=== PATIENT | male | born 1985 | race Hispanic/Latino ===

== ENCOUNTER 2021-01-21 17:50 | Inpatient (IN) | payer SELFPAY ==
[2021-01-21 19:56] LABS: #Eosinphils 0.1 thou/uL (0.0-0.7); #Lymphocytes 1.3 thou/uL (1.20-3.40); #Monocytes 0.5 thou/uL (0.11-0.59); #Neutrophils 6.5 thou/uL (1.40-6.50); %Basophils 0.5 % (0.0-1.0); %Eosinophils 0.8 % (0.0-10.0); %Lymphocytes 15.8 % (21.0-51.0); %Monocytes 5.9 % (0.0-10.0); Hemoglobin 15.4 g/dL (14.0-18.0); Mean Corpuscular HGB CONC 34.3 g/dL (32.0-36.0); Mean Corpuscular Hemoglobin 30.4 pg (27.0-31.0); Mean Corpuscular Volume 88.7 fL (78.0-98.0); Platelet Count 229 thou/uL (130-400); RBC Distribution Width 11.7 % (11.5-14.5); Red Blood Cell (RBC) Count 5.06 mill/uL (4.70-6.10); White Blood Cell (WBC) Count 8.4 thou/uL (4.8-10.8)
[2021-01-21 20:04] LABS: Prothrombin Time 13.2 sec (12.0-14.7)
[2021-01-21] MEDS ORDERED: Morphine 4 MG/ML VIAL ONE (20:08)
[2021-01-21] MEDS ORDERED: Dextrose 5% in Water 1,000 ML IV PRN (20:11)
[2021-01-21] MEDS ORDERED: Ondansetron PF 4 MG/2 ML Vial IVP PRN (20:11)
[2021-01-21] MEDS ORDERED: hydrALAZINE 20 MG/ML VIAL SLOW IVP PRN (20:11)
[2021-01-21] MEDS ORDERED: Morphine 4 MG/ML VIAL SLOW IVP PRN (20:11)
[2021-01-21] MEDS ORDERED: Dextrose 50% Abboject 50 ML SYRINGE SLOW IVP PRN (20:11)
[2021-01-21] MEDS ORDERED: traMADol HCl 50 MG TAB PO PRN (20:14)
[2021-01-21] MEDS ORDERED: Cyclobenzaprine 10 MG TAB PO PRN (20:14)
[2021-01-21 20:17] LABS: ALT (SGPT) 19 U/L (8-55); AST (SGOT) 17 U/L (5-34); Albumin 4.3 g/dL (3.5-5.0); Alkaline Phosphatase 82 U/L (40-110); Anion Gap 11 mmol/L (10-20); BUN (Urea Nitrogen) 8 mg/dL (8.9-20.6); Bilirubin, Total 0.6 mg/dL (0.2-1.2); Calc. Creatinine Clearance 0 mL/min (70-130); Calcium 8.9 mg/dL (7.8-10.44); Carbon Dioxide 27 mmol/L (22-29); Chloride 104 mmol/L (98-107); Globulin 3.3 g/dL (2.4-3.5); Glucose 135 mg/dL (70-105); Potassium 3.8 mmol/L (3.5-5.1); Protein, Total 7.6 g/dL (6.0-8.3); Sodium 138 mmol/L (136-145)
[2021-01-21 20:26] LABS: Magnesium 2.2 mg/dL (1.6-2.6); Phosphorus 2.3 mg/dL (2.3-4.7)
[2021-01-21] MEDS ORDERED: Potassium Phosphate 15 MMOL in Sodium Chloride 0.9% 250 ML 250 ML IVPB SCH (22:00)
[2021-01-21] MEDS: Acetaminophen 500 MG TAB PO SCH (23:01)
[2021-01-21] MEDS: Sodium Chloride 0.9% 1,000 ML IV SCH (23:01)
[2021-01-21] MEDS: traMADol HCl 50 MG TAB PO SCH (23:02)
[2021-01-21] MEDS: Gabapentin 300 MG CAP PO SCH (23:03)
[2021-01-21] MEDS: Ibuprofen 200 MG TAB PO SCH (23:04)
[2021-01-21] MEDS: Senokot S 8.6-50 MG TAB PO SCH (23:04)
[2021-01-21] MEDS: Famotidine 20 MG TAB PO SCH (23:04)
[2021-01-22 02:47] LABS: SARS-CoV-2 NAA Rapid Test Not Detected (NotDetected)
[2021-01-22] MEDS: Acetaminophen 500 MG TAB PO SCH ×4 (04:08→21:21)
[2021-01-22] MEDS: traMADol HCl 50 MG TAB PO SCH ×4 (04:09→21:22)
[2021-01-22] MEDS: Sodium Chloride 0.9% 1,000 ML IV SCH ×3 (05:05→16:57)
[2021-01-22 05:51] LABS: #Basophils 0.1 thou/uL (0.0-0.2); #Eosinphils 0.2 thou/uL (0.0-0.7); #Lymphocytes 2.1 thou/uL (1.20-3.40); #Monocytes 0.8 thou/uL (0.11-0.59); #Neutrophils 4.7 thou/uL (1.40-6.50); %Basophils 0.9 % (0.0-1.0); %Lymphocytes 26.8 % (21.0-51.0); %Monocytes 9.7 % (0.0-10.0); %Neutrophils 60.6 % (42.0-75.0); Hemoglobin 14.3 g/dL (14.0-18.0); Mean Corpuscular HGB CONC 35.1 g/dL (32.0-36.0); Mean Corpuscular Hemoglobin 31.5 pg (27.0-31.0); Mean Corpuscular Volume 89.9 fL (78.0-98.0); Mean Platelet Volume 7.4 fL (7.4-10.4); Platelet Count 219 thou/uL (130-400); RBC Distribution Width 11.7 % (11.5-14.5); Red Blood Cell (RBC) Count 4.54 mill/uL (4.70-6.10); White Blood Cell (WBC) Count 7.8 thou/uL (4.8-10.8)
[2021-01-22] MEDS: Ibuprofen 200 MG TAB PO SCH ×3 (06:04→21:24)
[2021-01-22 06:46] LABS: Anion Gap 12 mmol/L (10-20); BUN (Urea Nitrogen) 8 mg/dL (8.9-20.6); Calc. Creatinine Clearance 0 mL/min (70-130); Calcium 8.8 mg/dL (7.8-10.44); Carbon Dioxide 24 mmol/L (22-29); Chloride 106 mmol/L (98-107); Glucose 102 mg/dL (70-105); Magnesium 2.2 mg/dL (1.6-2.6); Sodium 138 mmol/L (136-145)
[2021-01-22] MEDS: Famotidine 20 MG TAB PO SCH ×2 (08:44→21:23)
[2021-01-22] MEDS: Gabapentin 300 MG CAP PO SCH ×3 (08:45→21:23)
[2021-01-22] MEDS ORDERED: ceFAZolin Sodium/D5W 2 GM in Premix Bag 1 BAG IVPB SCH (09:00)
[2021-01-22] MEDS ORDERED: FLU VACC QS2021-22(6MOS UP)/PF 60 MCG/0.5 ML SYRINGE IM ONE (09:00)
[2021-01-22] MEDS: Senokot S 8.6-50 MG TAB PO SCH ×2 (09:03→21:23)
[2021-01-22] MEDS: Polyethylene Glycol 3350 17 GM Packet PO SCH (09:03)
[2021-01-22] MEDS ORDERED: ceFAZolin 2 GM/DEX 5% 100 ML BAG ONE (10:45)
[2021-01-22] MEDS ORDERED: HYDROmorphone 2 MG/ML VIAL ONE (11:06)
[2021-01-22] MEDS ORDERED: Fentanyl 100 MCG/2 ML VIAL ONE (11:06)
[2021-01-22] MEDS ORDERED: Sodium Chloride 0.9% 20 ML ONE (11:18)
[2021-01-22] MEDS ORDERED: ePHEDrine 50 MG/ML VIAL ONE (11:26)
[2021-01-22] MEDS ORDERED: Ketorolac Tromethamine 30 MG/ML VIAL ONE (11:26)
[2021-01-22] MEDS ORDERED: Ondansetron PF 4 MG/2 ML Vial ONE (11:26)
[2021-01-22] MEDS ORDERED: PROPOFOL 200 MG/20 ML VIAL ONE (11:26)
[2021-01-22] MEDS ORDERED: Rocuronium Bromide 10 MG/ML (10ML VIAL) ONE (11:26)
[2021-01-22] MEDS ORDERED: Lidocaine 1% PF 5 ML VIAL ONE (11:26)
[2021-01-22] MEDS ORDERED: Phenylephrine 10 MG/ML VIAL ONE (11:26)
[2021-01-22] MEDS ORDERED: Glycopyrrolate 0.2 MG/ML 5 ML SYRINGE ONE (11:26)
[2021-01-22] MEDS ORDERED: Dexamethasone 20 MG/5 ML VIAL ONE (11:26)
[2021-01-22] MEDS ORDERED: Bupivacaine PF 0.5% 30 ML VIAL ONE (11:46)
[2021-01-22] MEDS ORDERED: Ondansetron HCl/PF 4 MG/2 ML Vial IVP PRN (13:20)
[2021-01-22] MEDS ORDERED: Promethazine HCl 25 MG/ML VIAL IVPB PRN (13:20)
[2021-01-22] MEDS ORDERED: Promethazine HCl 25 MG/ML VIAL IM PRN (13:20)
[2021-01-22] MEDS ORDERED: HYDROmorphone 2 MG/ML VIAL SLOW IVP PRN (13:20)
[2021-01-22] MEDS: ceFAZolin Sodium/D5W 2 GM in Premix Bag 1 BAG IVPB SCH (16:55)
[2021-01-23] MEDS: Acetaminophen 500 MG TAB PO SCH ×3 (02:35→15:15)
[2021-01-23] MEDS: traMADol HCl 50 MG TAB PO SCH ×3 (02:37→15:10)
[2021-01-23] MEDS: ceFAZolin Sodium/D5W 2 GM in Premix Bag 1 BAG IVPB SCH (02:38)
[2021-01-23 05:19] LABS: #Lymphocytes 1.4 thou/uL (1.20-3.40); #Monocytes 0.8 thou/uL (0.11-0.59); #Neutrophils 6.2 thou/uL (1.40-6.50); %Eosinophils 0.2 % (0.0-10.0); %Lymphocytes 16.4 % (21.0-51.0); %Neutrophils 74.4 % (42.0-75.0); Hemoglobin 13.3 g/dL (14.0-18.0); Mean Corpuscular HGB CONC 34.2 g/dL (32.0-36.0); Mean Corpuscular Hemoglobin 30.6 pg (27.0-31.0); Mean Corpuscular Volume 89.5 fL (78.0-98.0); Mean Platelet Volume 7.4 fL (7.4-10.4); Platelet Count 246 thou/uL (130-400); RBC Distribution Width 11.5 % (11.5-14.5); Red Blood Cell (RBC) Count 4.35 mill/uL (4.70-6.10); White Blood Cell (WBC) Count 8.3 thou/uL (4.8-10.8)
[2021-01-23 05:44] LABS: Anion Gap 11 mmol/L (10-20); BUN (Urea Nitrogen) 12 mg/dL (8.9-20.6); Calc. Creatinine Clearance 0 mL/min (70-130); Calcium 8.8 mg/dL (7.8-10.44); Carbon Dioxide 24 mmol/L (22-29); Chloride 106 mmol/L (98-107); Glucose 114 mg/dL (70-105); Magnesium 2.2 mg/dL (1.6-2.6); Sodium 137 mmol/L (136-145)
[2021-01-23] MEDS: Ibuprofen 200 MG TAB PO SCH ×2 (06:06→15:11)
[2021-01-23] MEDS: Senokot S 8.6-50 MG TAB PO SCH (08:33)
[2021-01-23] MEDS: Famotidine 20 MG TAB PO SCH (08:35)
[2021-01-23] MEDS: Gabapentin 300 MG CAP PO SCH ×2 (08:35→15:11)
[2021-01-23] MEDS: Polyethylene Glycol 3350 17 GM Packet PO SCH (08:36)
[2021-01-23] MEDS ORDERED: Enoxaparin Sodium 40 MG/0.4 ML SYRINGE SC SCH (09:00)
[2021-01-23 16:30] VITALS: BP 138/75; TEMP 98.2
== END 2021-01-23 08:40 | disposition home or self-care (01) | DRG 494 ==
LOC: ERS 17:50 → SURG B 20:14 → EDBD 20:14
PROVIDERS: ADMIT Specialist; ATTEND Specialist
PROC: 0QSJ04Z Reposition Right Fibula with Internal Fixation Device, Open Approach (ICD-10-PCS; principal; 2021-01-22)
PROC: 0QSG04Z Reposition Right Tibia with Internal Fixation Device, Open Approach (ICD-10-PCS; 2021-01-22)
DX: S82.841A Displaced bimalleolar fracture of right lower leg, initial encounter for closed fracture (principal); S82.872A Displaced pilon fracture of left tibia, initial encounter for closed fracture; W18.30XA Fall on same level, unspecified, initial encounter; Z20.822 Contact with and (suspected) exposure to COVID-19
CPT/HCPCS: 36415; 71045; 76000; 80048; 80053; 83735; 84100; 85025; 85610; 85730; 86850; 86900; 86901; 93005; C1713; J1100; J1170; J1650; J1885; J2270; J2370; J2405; J2704; J3010; J3490; J7050; S0020; U0002; U0003; U0005